=== PATIENT | male | born 1935 | race Caucasian/White ===

== ENCOUNTER 2016-06-21 09:26 | Observation (INO) | payer OTHER ==
[~2016-06-21] VITALS: Ht 177.8 cm; Wt 78.8 kg
[2016-06-21 10:54] LABS: HEMATOCRIT 46.2 % (38.0-50.0); MCH 29.1 PG (29.0-34.0); MCHC 32.5 G/DL (30.0-36.0); MCV 89.7 FL (86-99); MEAN PLAT.VOLUME 9.6 uM^3 (9.0-12.4); PLATELET COUNT 243 K/uL (156-360); RBC DIS.WIDTH-CV 15.8 % (11.8-14.6); RBC DIS.WIDTH-SD 52.4 % (39-53); RED BLOOD COUNT 5.15 M/uL (4.00-5.50); WHITE BLOOD COUNT 6.2 K/uL (4.1-10.2)
[2016-06-21 11:09] LABS: CHLORIDE 108 mEq/L (99-109); POTASSIUM 4.6 mEq/L (3.7-5.4); SODIUM 140 mEq/L (136-147)
[2016-06-21 11:10] LABS: GLUCOSE 92 mg/dL (70-99)
[2016-06-21 11:12] LABS: ANION GAP 8 MEQ/L (2-14)
[2016-06-21 11:14] LABS: GFR ESTIMATE (CALCULATED) > 59 mL/min/
[2016-06-21 11:15] LABS: UREA NITROGEN (BUN) 15 mg/dL (9-23)
[2016-06-21] MEDS ORDERED: SIMVASTATIN20 MG PO (14:30)
[2016-06-21] MEDS ORDERED: METFORMIN HCL500 MG PO (14:30)
[2016-06-21] MEDS ORDERED: COMBIGAN O20 DROP/5 BOTH EYES (14:30)
[2016-06-21] MEDS ORDERED: AMLODIPINE BESY10 MG PO (14:30)
[2016-06-21 15:30] LABS: TROP-I INTERPRETATION NEGATIVE; TROPONIN-I < 0.01 ng/mL (0.0-0.30)
[2016-06-21 15:38] LABS: HDL CHOLESTEROL 39 MG/DL (Desirable>=40); LDL CHOLESTEROL 103 mg/dL (Desirable<100); NON-HDL CHOLESTEROL 123 mg/dL (Desirable<160); TOTAL CHOLESTEROL 162 mg/dL (Desirable<200); TRIGLYCERIDES 101 MG/DL (Normal: <150)
[2016-06-21 17:21] LABS: Estimated Average Glucose 120 mg/dL (70-123); HEMOGLOBIN A1c (GLYCOHEMOGLOB) 5.8 % HGB (Below 5.7)
[2016-06-21 18:31] VITALS: BP 169/81
[2016-06-21 18:45] LABS: POINT-OF-CARE METER ID UU14162513
[2016-06-21 20:00] VITALS: BP 140/61
[2016-06-21 21:49] LABS: TROP-I INTERPRETATION NEGATIVE; TROPONIN-I < 0.01 ng/mL (0.0-0.30)
[2016-06-22] VITALS: BP 136/67
[2016-06-22 02:43] LABS: TROP-I INTERPRETATION NEGATIVE; TROPONIN-I < 0.01 ng/mL (0.0-0.30)
[2016-06-22 04:00] VITALS: BP 123/63
[2016-06-22 08:25] VITALS: BP 138/66
[2016-06-22 08:51] LABS: POINT-OF-CARE METER ID UU13113831
[2016-06-22] MEDS ORDERED: PRAVASTATIN SOD40 MG PO (12:07)
[2016-06-22] MEDS ORDERED: ASPIRIN81 M2 PO (12:08)
[2016-06-22 12:35] VITALS: BP 116/57
== END 2016-06-22 13:53 | disposition home or self-care (01) ==
LOC: EME 09:26 → 5WEST 14:13 → EDOF 14:13 → 5WEST 18:07
PROVIDERS: Hospitalist; Internal Medicine
DX: G45.9 Transient cerebral ischemic attack, unspecified (principal); I35.0 Nonrheumatic aortic (valve) stenosis; I10 Essential (primary) hypertension; E78.5 Hyperlipidemia, unspecified; E11.9 Type 2 diabetes mellitus without complications
CPT/HCPCS: 70450; 70551; 71020; 80048; 80061; 82948; 83036; 84443; 84484; 85027; 93005; 93306; 93880; 99281; 99285; G0378; J1650